=== PATIENT | female | born 1970 | race American Indian/Alaskan Native ===

== ENCOUNTER 2017-09-21 06:16 | Inpatient (IN) | payer BC ==
[2017-09-17 14:36] VITALS: BMI 36.9
[2017-09-21 07:03] LABS: HEMATOCRIT 41.8 % (34.0-47.0); MEAN CELL VOLUME 78.4 fl (81.0-99.0); MEAN CORPUSCULAR HEMOGLOBIN 25.1 pg (27.0-31.0); MEAN CORPUSCULAR HGB CONC 32.1 g/dL (33.0-37.0); RED CELL DISTRIBUTION WIDTH 14.7 % (11.5-14.5); WHITE BLOOD COUNT 10.4 K/uL (4.8-10.8)
[2017-09-21] MEDS ORDERED: Lactated Ringer's 1,000 ML IV ONE ×4 (07:06→12:45)
[2017-09-21 07:16] LABS: BLOOD UREA NITROGEN 17 mg/dl (7-17); CALCIUM 9.2 mg/dL (8.4-10.2); CARBON DIOXIDE 25 mmol/L (22-30); CHLORIDE 106 mmol/L (98-107); GFR AFRICAN-AMERICAN > 60; GLUCOSE,RANDOM 122 mg/dL (65-105); POTASSIUM 4.1 MMOL/L (3.6-5.0); SODIUM 140 mmol/l (132-148)
[2017-09-21] MEDS ORDERED: ceFAZolin IV 1 gm in Dextrose 2 GM/100 ML BAG IVPB ONE (07:29)
[2017-09-21] MEDS ORDERED: Vasopressin 20 Units/ml Inj ONE (08:41)
[2017-09-21] MEDS ORDERED: Propofol 10 mg/ml Inj (20 ML) ONE ×2 (08:55→09:33)
[2017-09-21] MEDS ORDERED: Succinylcholine 200 mg/10 ml Inj IV ONE (08:56)
[2017-09-21] MEDS ORDERED: Midazolam 2 MG/2 ML VIAL ONE (08:56)
[2017-09-21] MEDS ORDERED: Rocuronium 10 mg/ml (5 ml) ONE ×2 (08:56→10:56)
[2017-09-21] MEDS ORDERED: Lidocaine 4% (Laryng-O-Jet) Kit MM ONE (08:56)
[2017-09-21] MEDS ORDERED: ePHEDrine 50 mg/ml Inj ONE (08:56)
[2017-09-21] MEDS ORDERED: Dexamethasone 4 mg/1 ml ONE (09:57)
[2017-09-21] MEDS ORDERED: Bupivacaine-Epi 0.5%-1:200,000 PF Inj IJ ONE ×3 (10:00)
[2017-09-21] MEDS ORDERED: Vasopressin 20 Units/ml Inj IV ONE (10:50)
[2017-09-21] MEDS ORDERED: HEMOSTATIC MATRIX 10 ML DIS.NEEDLE TOP ONE ×2 (11:00→12:30)
[2017-09-21] MEDS ORDERED: Desflurane Inhalation Anesthetic Liq (240 ml) ONE (12:12)
[2017-09-21] MEDS ORDERED: Neostigmine Methylsulfate 3mg/3ml Syringe IV ONE (12:56)
[2017-09-21] MEDS ORDERED: HYDROmorphone 0.5 mg/0.5 ml ISec ONE (13:39)
[2017-09-21] MEDS: HYDROmorphone 0.5 mg/0.5 ml ISec IVP PRN ×6 (13:40→15:32)
--- NOTE | 2017-09-21 14:29 | PCM.SURG1 ---
Surgeon's Initial Post Op Note - Surgeon's Notes Surgeon: shade woodard md Landscape Artist: kaylee correa md, alvin larios, PGY1 Type of Anesthesia: General Endo Pre-Operative Diagnosis: symptomatic fibroid uterus. chronic pelvic pain. Jehova's witness. Abnormal uterine bleeding. Infertility Operative Findings: 24 weeks size uterus, multiple large intramural myomas, normal ovaries. Extensive adhessions bowel and peritoneal. Post-Operative Diagnosis: symptomatic fibroid uterus. chronic pelvic pain. Jehova's witness. Abnormal uterine bleeding. Infertility Operation Performed: Robotic assisted myomectomy >5 myomas. Robotic Enterolysis and exploration of ureters. Diagnostic cystoscopy Specimen/Specimens Removed: myomas Estimated Blood Loss: EBL {In ML}: 400 Blood Products Given: N/A Drains Used: No Drains Post-Op Condition: Good Date of Surgery/Procedure: 09/21/17 Time of Surgery/Procedure: 14:30
--- NOTE | 2017-09-21 14:33 | PCM.OP ---
Operative Report - Operative Report Date of Surgery/Procedure: 09/21/17 Time of Surgery/Procedure: 14:32 Surgeon: shade woodard md Investment Banking Associate: kaylee correa md, alvin PEREIRA Anesthesia/Sedation: dr mike wong Pre-Operative Diagnosis: Symptomatic fibroid uterus. Chronic pelvic pain. infertility. Abnormal uteine bleeding. Urinary incontience Post-Operative Diagnosis: Symptomatic fibroid uterus. Chronic pelvic pain. infertility. Abnormal uteine bleeding. Urinary incontience Indication for Surgery: worsening symptomatic fibroid uterus and long standing infertility Operative Findings: masssive enlarged fibroid uterus approx 24 weeks size. extensive intraabdominal intrapelvic adhessions. normal bladder anatomy Procedure/Operation Description: 1. Robotic myomectomy >5 myomas. 2. Exploration of ureters and enterolysis. 3. Laparotomy. 4. Diagnostic cystoscopy. Detailed operative report. This is a 46 year's old female with an enlarged fibroid uterus, associated abnormal uterine bleeding, chronic pelvic pain, urinary frequency urgency and incontinence, and long standing history of infertility. Following complete workup at the office which included an ultrasound, pelvic MRI, urodynamic study as well as Pap smear a decision was made to proceeds with a robotic assisted myomectomy. After proper consent was obtained from the patient was taken to the operating room where general anesthesia was obtained without difficulty. She was placed in dorsal lithotomy position her legs were placed in adjustable Mustapha stirrups. Careful attention was placed to avoid over-flexion or over-rotation of the lower extremities at the hip or the knee joints. Exam under anesthesia revealed a massively enlarged fibroid uterus, approximately 24 weeks size not mobile uterus. The patient is morbidly obese and is a known [employer]. She was prepped and draped appropriately for robotic assisted myomectomy. Alanis catheter was inserted under sterile conditions. A standard size V-care uterine manipulator was inserted through the cervix and secured. Local anesthetic solutions of 0.25% Marcaine with epinephrine were utilized to infiltrate the skin prior to all abdominal skin incisions. A total of 20 mL of 0.25% Marcaine was utilized throughout the procedure. While tenting the abdominal wall, a Veres needle was carefully inserted above the umbilicus and a pneumoperitoneum was obtained. Intraperitoneal placement was confirmed with a droplet of water test through the needle as well as a significant drop in intra- abdominal pressure. A total of approximately 3 and half liters of CO2 gas was utilized to achieve pneumoperitoneum, and the limits intra-abdominal pressure was set at 15 mm. Approximately 5 cm above the umbilicus in the midline, an 8mm incision was made with a scalpel and a robotic trocar was introduced. A robotic camera was inserted and an initial survey of the patient's abdomen revealed an enlarged bulky fibroid uterus, boggy in appearance. Multiple intramural myomas were noted involving the posterior uterine well, the fundus, as well as the anterior uterine wall. Extensive peritoneal and omental adhesions involving loops of bowel and anterior abdominal well were identified; Extensive peritoneal adhesions were noted in the posterior cul-de-sac. Both ovaries and fallopian tubes appeared normal however adherent to the pelvic viscera and pelvic sidewall. The patient was placed in moderate Trendelenburg position. 3 robotic ports were utilized for this procedure. The first robotic port was placed on the patient's LEFT side approximately 8 cm superior today LEFT superior iliac crest. The second robotic port was placed 8 cm superior to the iliac crest on the RIGHT side. The third robotic port was placed approx. 8 cm right lateral the camera port in the midline. And finally an infertility medical assistant port which was 12 mm in diameter was inserted approximately 8 cm LEFT lateral of the camera port in the midline. Investment Banking Associate port utilized was a VersaStep trocar system. All ports were approx. aligned along the same horizontal line on the abdomen in an arched fashion. All trocars were inserted under direct visualization while tenting the abdominal wall was then massively enlarged uterus extended past the umbilicus level. The placement of the trocars was all accomplished under careful and meticulous placement under direct visualization. Following the placement of all trocars, the da Vishal robotic system was docked in a parallel fashion without difficulty. The following instruments were utilized for this procedure: the bipolar cautery device, a monopolar cain and finally a ProGrasp. Meticulous and careful lysis of adhesions as well as enterolysis was accomplished utilizing the monopolar cain and bipolar device. Prior to the start of the myomectomy, both ureters and their courses were visualized; peristalsis bilaterally. The pelvic sidewall was opened and ureters explored and traced from the pelvic brim towards the bladder. Extensive lysis of adhesions and enterolysis was completed using the sharp and blunt dissection. Multiple bowel loops were released following the lysis of adhesions. The ovaries and tubes were also released from the dense peritoneal adhesions typical to possible prior infection or possibly prior surgery. Diluted Pitressin solution 40 units in 120 mL of saline was utilized to inject around the myomas capsules in the anterior wall of the uterus as well in the posterior uterine wall and finally the fundus.. The injection of the PITRESSIN solution into the uterine well to assist in hemostasis vaso-constriction was accomplished for a spinal needle inserted through the abdominal well into the peritoneal cavity. It was throuhj these incisions, that all myomas were enucleated and removed to complete the myomectomy. For each incision, a full thickness elliptical incision was made into the serosa of the uterus and carried down to the myoma.s capsule. Blunt and sharp dissection was used to enucleate the myomas. The first incision was made into the posterior uterine wall at the lower segment, extending from one lateral edge of the uterus to the opposite edge. Sharp and blunt dissection was carried out in a meticulous fashion to enucleate a cluster of large myomas which were placed in the abdominal cavity for later extraction. The endometrial cavity was not entered. The second large elliptical incision started on the anterior uterine well and extended in an elliptical fashion from RIGHT to LEFT edges of the uterus, excising a large fragment of the uterine serosa overlying the large cluster of myomas. The large cluster of myomas extended far past the fundus of the uterus. Careful attention was paid to avoid the fallopian tubes insertions or cornuas during this process. A myomas which were enucleated, her tied together with an 0 Vicryl suture to be extracted later on from the abdominal cavity. Multilayer closure was needed to close the space where the myomas were removed from. Using a 2-0 v-lock in continues fashion, good hemostasis was achieved. Excess serosa was excised to allow for tight closure of the serosal surface. All serosal incisions were closed utilizing 3-0 Monocryl in a baseball -like stitch fashion. Both anterior and posterior large elliptical incisions were closed in a similar fashion. FloSeal's as well as Interceed were applied to all incisions. Excellent hemostasis was noted throughout. The abdomen was throughout irrigated and cleared of all clots and debris. All instruments removed under direct visualization and robotic arms were undocked and removed. At this time, attention was then turned to the patient's abdomen where the extraction of the multiple myomas. A PFANNENSTIEL incision was made into the abdominal wall with a scalpel, an incision was extended to the level of the rectus fascia. The fascia was incised in the midline and the incision was extended. The rectus muscles were then in the midline and incision was extended. The peritoneal cavity was entered sharply and incision was extended. The multiple myomas which were tied together the extracted this incision. The myomas were sent to pathology along with the excess serosal fragments labeled appropriately. The abdomen was throughout irrigated and cleared of all clots and debris. The peritoneum was closed with 2-0 Vicryl in continuous fashion. The fascia was closed with 0 Vicryl in continuous fashion. And the skin was closed with 4-0 Monocryl in subcutaneous fashion. All skin incisions were closed utilizing a 4-0 Monocryl in a subcutaneous fashion; Dermabond was applied to all incisions. The infertility medical assistant port was closed in a fascial layer utilizing 2-0 Vicryl in an interrupted fashion. Due to the complexity and proximity to the ureters and iliac vessels, a decision was made to proceed with a diagnostic cystoscopy. A 30 degree cystoscope was advanced into the bladder, and an initial survey of the bladder revealed normal appearing bladder anatomy. The dome and trigone of the bladder were normal appearing. The ureters were visualized efluxing urine freely. Prior to incision patient received prophylactic antibiotics, prior to closure sponge lap and needle counts are correct x2. Patient tolerated the procedure well and was taken to recovery room in stable condition. This is an exceptionally difficult surgical procedure due to the massive size of the fibroid uterus, distorted pelvic and abdominal cavity due to adhesions, as well as limited operating space due to the large size of this uterus. Estimated Blood Loss: 400 Blood Replaced: none Sponge/Instrument Count: correct times two Drains: none Complications: none Specimen: myomas Discharge & Condition: stable condition discharge home once criteria met.
[2017-09-21] MEDS ORDERED: ceFAZolin IV 2 gm in Dextrose 2 GM/50 ML BAG IVPB SCH (17:00)
[2017-09-21] MEDS: ceFAZolin IV 2 gm in Dextrose 2 GM/50 ML BAG IVPB SCH (17:09)
[2017-09-21] MEDS: Sodium Chloride 0.9% 1,000 ML IV SCH (17:12)
[2017-09-21] MEDS: Lactated Ringer's 1,000 ML IV SCH (17:14)
[2017-09-21] MEDS ORDERED: Influenza Vaccine 18yr & older 0.5 ML/45 MCG SYR IM ONE (17:19)
--- NOTE | 2017-09-21 17:37 | CARD ---
APPROVED REPORT EKG Measurement Heart [id number] <Conclusion> Normal sinus rhythm Normal ECG
[2017-09-22] MEDS: Lactated Ringer's 1,000 ML IV SCH ×3 (00:37→13:55)
[2017-09-22] MEDS: Sodium Chloride 0.9% 1,000 ML IV SCH ×2 (00:55→11:05)
[2017-09-22] MEDS: ceFAZolin IV 2 gm in Dextrose 2 GM/50 ML BAG IVPB SCH ×3 (00:58→16:30)
[2017-09-22] MEDS: Oxycodone/Acetaminophen 5/325 mg Tab PO PRN ×2 (06:38→14:25)
[2017-09-22 08:15] VITALS: RESP 20
[2017-09-22 08:27] LABS: BASO # 0.1 K/uL (0.0-0.2); BASO % 0.5 % (0.0-2.0); LYMPH # 1.7 K/uL (1.0-4.3); LYMPH % 10.1 % (20.0-40.0); MEAN CELL VOLUME 77.5 fl (81.0-99.0); MEAN CORPUSCULAR HEMOGLOBIN 24.5 pg (27.0-31.0); MEAN CORPUSCULAR HGB CONC 31.6 g/dL (33.0-37.0); MEAN PLATELET VOLUME 7.5 fl (7.2-11.7); MONO % 5.8 % (0.0-10.0); NEUT # 13.9 K/uL (1.8-7.0); NEUT % 83.6 % (50.0-75.0); RED CELL DISTRIBUTION WIDTH 14.7 % (11.5-14.5); WHITE BLOOD COUNT 16.6 K/uL (4.8-10.8)
[2017-09-22 08:51] LABS: BLOOD UREA NITROGEN 10 mg/dl (7-17); CALCIUM 8.3 mg/dL (8.4-10.2); CARBON DIOXIDE 24 mmol/L (22-30); CHLORIDE 104 mmol/L (98-107); GFR AFRICAN-AMERICAN > 60; GLUCOSE,RANDOM 129 mg/dL (65-105); POTASSIUM 3.5 MMOL/L (3.6-5.0); SODIUM 136 mmol/l (132-148)
--- NOTE | 2017-09-22 10:33 | CP.PCM.PN ---
Subjective - Date & Time of Evaluation Date of Evaluation: 09/22/17 Time of Evaluation: 10:33 - Subjective Subjective: Patient states that pain is better than expected and controlled by medication. presley removed, patient yet to void. c/o belching, no passing gas. Good appetite , tolerating diet. Objective - Vital Signs/Intake and Output Vital Signs (last 24 hours): Temp Pulse Resp BP Pulse Ox 98.5 F 91 H 20 116/73 98 09/22/17 08:14 09/22/17 08:14 09/22/17 08:14 09/22/17 08:14 09/22/17 08:14 Intake and Output: 09/22/17 09/22/17 06:59 18:59 Output Total 1250 Balance -1250 - Medications Medications: Current Medications Acetaminophen (Tylenol 325mg Tab) 650 mg PO Q8 PRN PRN Reason: Fever >100.4 F Hydromorphone HCl (Dilaudid) 2 mg IVP Q3H PRN PRN Reason: Pain, severe (8-10) Last Admin: 09/22/17 00:59 Dose: 2 mg Lactated Ringer's (Lactated Ringer's) 1,000 mls @ 125 mls/hr IV .Q8H [facility] Last Admin: 09/22/17 06:31 Dose: Not Given Sodium Chloride (Sodium Chloride 0.9%) 1,000 mls @ 100 mls/hr IV .Q10H [facility] Last Admin: 09/22/17 00:55 Dose: Not Given Cefazolin Sodium/Dextrose (Ancef Iv 2 Gm Duplex) 2 gm in 50 mls @ 50 mls/hr IVPB Q8 EVELYN PRN Reason: Protocol Last Admin: 09/22/17 09:05 Dose: 50 mls/hr Ondansetron HCl (Zofran Inj) 4 mg IVP Q6 PRN PRN Reason: Nausea/Vomiting Oxycodone/Acetaminophen (Percocet 5/325 Mg Tab) 2 tab PO Q4H PRN PRN Reason: Pain, moderate (4-7) Stop: 09/24/17 14:34 Last Admin: 09/22/17 06:38 Dose: 2 tab - Labs Labs: 09/22/17 08:20 09/22/17 08:20 - GI/Abdominal Exam Additional comments: Abd mildly distended, soft. Incision intact, dry, no erythema. patient states she has some vaginal bleeding, but small amount Assessment and Plan (1) Fibroid uterus Assessment & Plan: POD#1 s/p robotic assisted myomectomy -d/c home today -percocet prn pain per elia Terrell recommended -encourage OOB/ambulation -call for f/u appt in 1-2 weeks -pt to void then will be discharged -k supp -d/w DR. Felipe, agrees with above [place] [employer] patient report reviewed, no CDS. Patient counseled on the risks of addiction, physical or psychological dependence, and overdose associated with opioid drugs and the danger of taking opioid drugs with alcohol and other central nervous system depressants, and cautioned patient on storage and disposal. Status: Acute (2) Chronic pelvic pain in female Status: Acute (3) Abnormal uterine bleeding Status: Acute (4) Infertility Status: Acute
[2017-09-22] MEDS ORDERED: Potassium Chloride 20 mEq ER Tab PO ONE (10:47)
[2017-09-22 16:49] VITALS: BP 108/71; PULSE 101; TEMP 99.9; O2SAT 95
== END 2017-09-22 19:30 | disposition home or self-care (01) | DRG 743 ==
LOC: H.OPSURG 06:16 → H.MEDSURG1 14:33
PROVIDERS: ADMIT Obstetrics & Gynecology; ATTEND Obstetrics & Gynecology
PROC: 0TJB8ZZ Inspection of Bladder, Via Natural or Artificial Opening Endoscopic (ICD-10-PCS; 2017-09-21)
PROC: 8E0W0CZ Robotic Assisted Procedure of Trunk Region, Open Approach (ICD-10-PCS; 2017-09-21)
PROC: 0UB90ZZ Excision of Uterus, Open Approach (ICD-10-PCS; principal; 2017-09-21 09:00)
PROC: 0DNW0ZZ Release Peritoneum, Open Approach (ICD-10-PCS; 2017-09-21 09:00)
DX: D25.1 Intramural leiomyoma of uterus (principal); E66.01 Morbid (severe) obesity due to excess calories; N73.6 Female pelvic peritoneal adhesions (postinfective); G89.29 Other chronic pain; N97.9 Female infertility, unspecified; N93.8 Other specified abnormal uterine and vaginal bleeding; Z68.36 Body mass index [BMI] 36.0-36.9, adult